=== PATIENT | female | born 1995 | race Caucasian/White ===

== ENCOUNTER → 2021-06-05 | Outpatient (CLI) | payer SELFPAY | END | disposition home or self-care (01) | LOC: LAB SHORT 09:55 | DX: N39.0 Urinary tract infection, site not specified (principal) | CPT/HCPCS: 87077; 87086; 87186 ==

== ENCOUNTER → 2021-07-15 | Outpatient (CLI) | payer BC | END | disposition home or self-care (01) | LOC: LAB SHORT 19:00 | DX: N39.0 Urinary tract infection, site not specified (principal) | CPT/HCPCS: 87077; 87086; 87186 ==

== ENCOUNTER → 2021-10-19 | Outpatient (CLI) | payer BC | END | disposition home or self-care (01) | LOC: LAB 17:04 → LAB SHORT 17:04 | DX: R30.9 Painful micturition, unspecified (principal) | CPT/HCPCS: 87077; 87086; 87186 ==